=== PATIENT | female | born 1995 | race Caucasian/White ===

== ENCOUNTER 2016-09-07 13:36 | Emergency (ER) | payer OTHER ==
[~2016-09-07] VITALS: Ht 160 cm; Wt 68.0 kg
[~2016-09-07 13:36] MED LIST: AMOXIL250 MG/5 M PO; BACTRIM DS 8001 TA1 PO; GARDASIL IM; LIDEX0.05% T; MOTRIN800 MG PO; PREDNICOT20 MG PO; ZOLOFT25 MG PO
[2016-09-07 13:51] VITALS: BP 141/76
[2016-09-07] MEDS ORDERED: BENADRYL25 M2 PO (14:07)
== END 2016-09-07 14:13 | disposition home or self-care (01) ==
LOC: ED 13:36
DX: T63.441A Toxic effect of venom of bees, accidental (unintentional), initial encounter (principal); Z79.899 Other long term (current) drug therapy; Y92.9 Unspecified place or not applicable

== ENCOUNTER 2018-09-14 08:37 | Emergency (ER) | payer OTHER ==
[~2018-09-14] VITALS: Ht 154.9 cm; Wt 86.2 kg
[~2018-09-14 08:37] MED LIST changes: +BENADRYL25 M2 PO
[2018-09-14 08:38] VITALS: BP 126/68
[2018-09-14 09:13] LABS: BASO # 0.1 10*3/uL (0.0-0.1); BASO % 0.7 % (0.0-1.0); BILIRUBIN NEGATIVE (NEGATIVE); BLOOD TRACE-INTACT (NEGATIVE); CLARITY SL CLOUDY (CLEAR); COLOR YELLOW (YELLOW); EOS # 0.1 10*3/uL (0.0-0.4); EOS % 1.4 % (1.0-4.0); GLUCOSE NEGATIVE (NEGATIVE); HEMATOCRIT 36.2 % (37.0-47.0); KETONE NEGATIVE (NEGATIVE); LEUKO ESTERASE 1+ (NEGATIVE); LYMPH # 2.3 10*3/uL (1.3-4.4); LYMPH % 25.5 % (27.0-41.0); MEAN CELL VOLUME 86.4 fl (81.0-99.0); MEAN CORPUSCULAR HGB 28.6 pg (27.0-31.0); MEAN CORPUSCULAR HGB CONC 33.1 g/dl (33.0-37.0); MEAN PLATELET VOLUME 10.8 fl (9.6-12.3); MONO # 0.7 10*3/uL (0.1-1.0); MONO % 7.8 % (3.0-9.0); NEUT # 5.8 10*3/uL (2.3-7.9); NEUT % 64.4 % (47.0-73.0); NITRITE NEGATIVE (NEGATIVE); PH 6.5 (5.0-9.0); PLATELET COUNT AUTOMATED 295 10*3/uL (130-400); RED BLOOD COUNT 4.19 10*6/uL (4.10-5.10); RED CELL DISTRI WIDTH 12.9 % (0-14.5); SPECIFIC GRAVITY 1.015 (1.005-1.030); UROBILINOGEN 0.2 E.U./dl (0.2-1.0)
[2018-09-14 09:29] LABS: ALBUMIN 3.6 gm/dl (3.1-4.5); ALKALINE PHOSPHATASE 67 U/L (45-117); BUN 11 mg/dl (7-24); CHLORIDE 112 mmol/L (98-107); CREATININE 0.83 mg/dL (0.55-1.02); POTASSIUM 3.8 mmol/L (3.5-5.1); SGOT/AST 15 IU/L (3-35); SGPT/ALT 15 U/L (12-78); SODIUM 140 mmol/L (136-145); TOTAL PROTEIN 7.5 gm/dL (6.4-8.2)
[2018-09-14 09:32] LABS: BACTERIA 3+
[2018-09-14 09:36] LABS: BETA-HCG, QUANT < 1.0 mIU/mL (1-3)
[2018-09-14] MEDS ORDERED: ZOFRAN4 MG PO (09:38)
== END 2018-09-14 09:50 | disposition home or self-care (01) ==
LOC: ED 08:37
PROVIDERS: Emergency Medicine
DX: R11.2 Nausea with vomiting, unspecified (principal); R10.12 Left upper quadrant pain; Z32.02 Encounter for pregnancy test, result negative; Z79.899 Other long term (current) drug therapy

== ENCOUNTER 2018-11-03 21:32 | Emergency (ER) | payer OTHER ==
[~2018-11-03] VITALS: Ht 165.1 cm; Wt 54.4 kg
[~2018-11-03 21:32] MED LIST changes: +ZOFRAN4 MG PO
[2018-11-03 21:33] VITALS: BP 130/65
[2018-11-03] MEDS ORDERED: AMOXICILLIN500 M2 PO (21:54)
[2018-11-03] MEDS ORDERED: PSEUDOEPHEDRINE60 M2 PO (21:55)
== END 2018-11-03 22:05 | disposition home or self-care (01) ==
LOC: ED 21:32
DX: H66.91 Otitis media, unspecified, right ear (principal); J32.9 Chronic sinusitis, unspecified; H92.02 Otalgia, left ear

== ENCOUNTER → 2019-08-29 | Outpatient (CLI) | payer OTHER ==
[~2019-08-29] MED LIST changes: +AMOXICILLIN500 M2 PO; +PSEUDOEPHEDRINE60 M2 PO
== END | disposition home or self-care (01) ==
LOC: US 11:04
DX: R01.2 Other cardiac sounds (principal)

== ENCOUNTER → 2019-09-16 | Outpatient (CLI) | payer OTHER | END | disposition home or self-care (01) | LOC: CT 10:00 | DX: D27.0 Benign neoplasm of right ovary (principal) ==

== ENCOUNTER 2021-03-20 09:39 | Emergency (ER) | payer OTHER ==
[~2021-03-20] VITALS: Ht 165.1 cm; Wt 104.3 kg
[~2021-03-20 09:39] MED LIST changes: +KEFLEX500 M1 PO
[2021-03-20 10:42] VITALS: BP 120/64
[2021-03-20] MEDS ORDERED: CLARITIN10 MG PO (11:05)
== END 2021-03-20 11:20 | disposition home or self-care (01) ==
LOC: ED 09:39
DX: L50.9 Urticaria, unspecified (principal)

== ENCOUNTER 2021-09-04 14:49 | Emergency (ER) | payer OTHER ==
[~2021-09-04] VITALS: Wt 54.4 kg
[~2021-09-04 14:49] MED LIST changes: +CLARITIN10 MG PO
[2021-09-04 14:53] VITALS: BP 129/60
== END 2021-09-04 15:15 | disposition home or self-care (01) ==
LOC: ED 14:49
DX: T16.2XXA Foreign body in left ear, initial encounter (principal); Z79.899 Other long term (current) drug therapy; X58.XXXA Exposure to other specified factors, initial encounter; Y93.89 Activity, other specified; Y92.89 Other specified places as the place of occurrence of the external cause; Y99.8 Other external cause status

== ENCOUNTER → 2022-01-24 | Day surgery (SDC) | payer OTHER ==
[~2022-01-24] VITALS: Ht 165.1 cm; Wt 95.3 kg
[~2022-01-24] MED LIST changes: +Percocet 325 MG1 TAB PO
[2022-01-24 07:53] VITALS: BP 112/58
[2022-01-24 10:00] VITALS: BP 118/65
[2022-01-24 10:15] VITALS: BP 113/73
[2022-01-24 10:30] VITALS: BP 110/69
[2022-01-24 10:45] VITALS: BP 127/68
[2022-01-24 11:00] VITALS: BP 115/68
== END | disposition home or self-care (01) ==
LOC: SDC 01-21 13:15
PROVIDERS: ATTEND Obstetrics & Gynecology
DX: Z30.2 Encounter for sterilization (principal); F90.9 Attention-deficit hyperactivity disorder, unspecified type; F31.9 Bipolar disorder, unspecified

== ENCOUNTER 2023-08-12 14:15 | Emergency (ER) | payer OTHER ==
[~2023-08-12] VITALS: Ht 165.1 cm; Wt 54.4 kg
[~2023-08-12 14:15] MED LIST changes: +CIPRO500 MG PO; +PHENERGAN25 M3 PO
[2023-08-12 14:44] VITALS: BP 108/60
[2023-08-12] MEDS ORDERED: Ondansetron Hydrochloride 4 MG TAB SL ONE (16:20)
[2023-08-12 16:37] LABS: BILIRUBIN Negative (Negative); BLOOD Trace-Lysed (Negative); CLARITY Cloudy (Clear); COLOR Yellow (Yellow); GLUCOSE Negative (Negative); KETONE Negative (Negative); LEUKO ESTERASE 3+ (Negative); NITRITE Positive (Negative); PH 5.5 (4.5-8.0); SPECIFIC GRAVITY >= 1.030 (1.001-1.030)
[2023-08-12 16:53] LABS: BACTERIA 3+; WBC 51-100 wbc/hpf (0-5)
[2023-08-12] MEDS ORDERED: CIPROFLOX-DEXA7.5 ML OT (16:57)
[2023-08-12] MEDS ORDERED: AMOX-CLAV 875-1 EACH PO (16:57)
== END 2023-08-12 17:14 | disposition home or self-care (01) ==
LOC: ED 14:15
PROVIDERS: Internal Medicine
DX: H66.93 Otitis media, unspecified, bilateral (principal); H60.93 Unspecified otitis externa, bilateral; N39.0 Urinary tract infection, site not specified; F90.9 Attention-deficit hyperactivity disorder, unspecified type; F32.A Depression, unspecified

== ENCOUNTER 2023-11-07 09:04 | Emergency (ER) | payer SELFPAY ==
[~2023-11-07] VITALS: Ht 165.1 cm; Wt 54.4 kg
[~2023-11-07 09:04] MED LIST changes: +AMOX-CLAV 875-1 EACH PO; +CIPROFLOX-DEXA7.5 ML OT
[2023-11-07 09:34] VITALS: BP 119/99
[2023-11-07] MEDS ORDERED: SEPTDS PO (11:05)
[2023-11-07] MEDS ORDERED: TYLENOL EXTRA500 MG PO (11:05)
[2023-11-07] MEDS ORDERED: IBUPROFEN400 MG PO (11:05)
== END 2023-11-07 13:22 | disposition home or self-care (01) ==
LOC: ED 09:04
DX: L73.9 Follicular disorder, unspecified (principal); F32.A Depression, unspecified; F90.9 Attention-deficit hyperactivity disorder, unspecified type

== ENCOUNTER 2024-07-06 10:38 | Emergency (ER) | payer OTHER ==
[~2024-07-06] VITALS: Ht 165.1 cm; Wt 59.0 kg
[~2024-07-06 10:38] MED LIST changes: +IBUPROFEN400 MG PO; +SEPTDS PO; +TYLENOL EXTRA500 MG PO
[2024-07-06 11:05] VITALS: BP 115/61
[2024-07-06 11:41] LABS: BILIRUBIN Negative (Negative); BLOOD 2+ (Negative); CLARITY Cloudy (Clear); COLOR Yellow (Yellow); GLUCOSE Negative (Negative); KETONE Trace (Negative); LEUKO ESTERASE 2+ (Negative); NITRITE Negative (Negative); SPECIFIC GRAVITY 1.025 (1.001-1.030); UROBILINOGEN 0.2 E.U./dl (0.0-1.0)
[2024-07-06 11:57] LABS: BACTERIA 2+; CALCIUM OXALATE CRYSTALS Trace; EPITHELIAL CELLS 16-20; MUCOUS 1+; WBC TNTC wbc/hpf (0-5)
[2024-07-06] MEDS ORDERED: CEPHALEXIN500 M1 PO (12:05)
== END 2024-07-06 12:15 | disposition home or self-care (01) ==
LOC: ED 10:38
PROVIDERS: Nurse Practitioner Family
DX: N39.0 Urinary tract infection, site not specified (principal); R10.2 Pelvic and perineal pain; Z11.3 Encounter for screening for infections with a predominantly sexual mode of transmission